=== PATIENT | female | born 1955 | race Caucasian/White ===

== ENCOUNTER 2020-07-12 06:04 | Day surgery (SDC) | payer MEDICARE ==
[~2020-07-12] VITALS: Ht 161.3 cm; Wt 55.0 kg
[~2020-07-12 06:04] MED LIST: LANS30CA60 PO; LEVO100T5 PO; METO25TA35 PO; ZOLP10TA PO; estradiol PO; progesterone PO
[2020-07-12 06:35] VITALS: BP 125/79
[2020-07-12] MEDS ORDERED: CHLORHEXIDINE 15 ML UDC ONE (06:39)
[2020-07-12] MEDS ORDERED: KETOROLAC 60 MG/2 ML ONE (06:48)
[2020-07-12] MEDS ORDERED: ROPIvacaine/PF 0.2%, 20 ML ONE (06:49)
[2020-07-12] MEDS ORDERED: EPINEPHRINE 1 MG/ML, 1ML ONE (06:49)
[2020-07-12] MEDS ORDERED: SODIUM CHLORIDE 0.9% 50 ML ONE (06:49)
[2020-07-12] MEDS ORDERED: MIDAZOLAM 1 MG/ML, 2ML ONE (06:54)
[2020-07-12] MEDS ORDERED: FENTANYL PF 100 MCG/2ML ONE (06:54)
[2020-07-12] MEDS ORDERED: BUPIVACAINE/PF 0.5% ONE (06:58)
[2020-07-12] MEDS ORDERED: CHLORHEXIDINE 15 ML UDC MM ONE (07:00)
[2020-07-12] MEDS ORDERED: LACTATED RINGERS 1,000 ML IV SCH (07:00)
[2020-07-12] MEDS ORDERED: LEVO88TA4 PO (07:09)
[2020-07-12] MEDS ORDERED: FLEC50TA25 PO (07:09)
[2020-07-12] MEDS ORDERED: FURO20TA3 PO (07:09)
[2020-07-12] MEDS ORDERED: DENO60DI IM (07:09)
[2020-07-12] MEDS ORDERED: RIVA20TA PO (07:09)
[2020-07-12] MEDS ORDERED: PROPOFOL 10 MG/ML, 20ML ONE (07:19)
[2020-07-12] MEDS ORDERED: ONDANSETRON 2MG/ML, 2ML ONE (07:19)
[2020-07-12] MEDS ORDERED: DEXAMETHASONE 4 MG/ML, 1ML ONE (07:19)
[2020-07-12] MEDS ORDERED: KETOROLAC 30 MG/1 ML ONE (07:19)
[2020-07-12] MEDS ORDERED: OXYcodone/APAP 5/325MG TABLET PO PRN (08:00)
[2020-07-12] MEDS ORDERED: morphine SULFATE 10 MG/ML, 1ML IVPush PRN (08:00)
[2020-07-12] MEDS ORDERED: PROMETHAZINE 25 MG/ML, 1ML IVPush PRN (08:30)
[2020-07-12] MEDS ORDERED: FENTANYL PF 100 MCG/2ML IV PRN (08:30)
[2020-07-12] MEDS ORDERED: HYDROmorphone 1 MG/ML, 1ML INJ IVPush PRN (08:30)
[2020-07-12] MEDS ORDERED: LORazepam 2 MG/ML, 1ML IVPush PRN (08:30)
[2020-07-12] MEDS ORDERED: OXYcodone 5 MG/5 ML ORAL.SOL UDC PO PRN (08:30)
[2020-07-12] MEDS ORDERED: ACETAMINOPHEN 325 MG TABLET PO PRN (08:30)
[2020-07-12] MEDS ORDERED: MEPERIDINE/PF 25MG/0.5ML IVPush PRN (08:30)
== END 2020-07-12 08:30 | disposition home or self-care (01) ==
LOC: OUT 06:04
PROVIDERS: ATTEND Orthopaedic Surgery
DX: M24.661 Ankylosis, right knee (principal); G89.18 Other acute postprocedural pain; I10 Essential (primary) hypertension; I48.0 Paroxysmal atrial fibrillation; K21.9 Gastro-esophageal reflux disease without esophagitis; E07.9 Disorder of thyroid, unspecified; Z20.828 Contact with and (suspected) exposure to other viral communicable diseases; Z79.01 Long term (current) use of anticoagulants; Z79.890 Hormone replacement therapy; Z79.899 Other long term (current) drug therapy; Z88.2 Allergy status to sulfonamides
CPT/HCPCS: 27570; 64447; J0171; J1885; J2250; J2795; J3010; J7120; U0003; J1100; J2405; J2704